=== PATIENT | female | born 1955 | race Caucasian/White ===

== ENCOUNTER 2017-06-13 12:18 | Emergency (ER) | payer BC ==
[~2017-06-13] VITALS: Ht 157.5 cm; Wt 66.7 kg
[2017-06-13 12:37] LABS: URINE BILIRUBIN - DIPSTICK NEGATIVE (NEG); URINE BLOOD 2+ (NEG)
[2017-06-13] MEDS ORDERED: PYRIDIUM100 M2 PO (12:59)
[2017-06-13] MEDS ORDERED: MACROBID100 M3 PO (12:59)
--- NOTE | 2017-06-13 13:00 | Urgent Treatment Center Report ---
History of Present Issue Date/Time Seen by Provider 06/13/17 1245 Visit Reason Pt arrived:Walked Presenting Problem:PT C/O PAIN, BURNING AND FREQUENCY WITH URINATION FOR THE PAST WEEK Location if Accident: Onset of symptoms date/time:/ or onset unknown for:MEDICAL HX UNKNOWN Have you (or family members/close friends) recently traveled outside the [place]? N If Yes, where/when: Have you had exposure to infectious disease within the past month? TB? Other? Specify: Patient state that she has been having pain and burning with urination. States that she feels like she continuously has to go to the bathroom, Having the feeling of urgency and frequency for over a week now. State that she took some over the counter AZO and it helped for about a day then the pain returned and was worse than it was in the begining Source patient ALLERGIES Coded Allergies: Sulfa (Sulfonamide Antibiotics) (Mild, 06/13/17) prednisone (Mild, 06/13/17) History Medical History General CAD? No Angina: No [place]: No Hypertension? No Hyperlipidemia? No CHF? No DVT? No PE? No COPD? No Asthma? No Anemia? No GERD? No Gastric ulcers? No GI Bleed? No Hernia? No Thyroid Problems? No Hypothyroidism? No CVA? No Seizures? No Diabetes? No Renal Insuffiency? No UTI? No Stones? No BPH? No GB Disease: No Nephritic Syndrome? No Asplenia? No Hepatitis? No Sickle Cell Disease? No Arthritis? No Migraines? No Cataracts? No Glaucoma? No MRSA? No HIV? No TB? No Anxiety? No Depression? No Cancer? No More? No Immunization HX DT/Tetanus 1-4 Years Ago Surgical Hx Previous Surgery?N Social History Smoking Hx Smoker: Never Smoker Tobacco: No Review of Systems All Other Systems Reviewed and Negative Genitourinary dysuria, frequency, pain. Physical Exam Vital Signs Vital Signs Date Time Temp Pulse Resp B/P Pulse O2 O2 Flow FiO2 Ox Delivery Rate 06/13 1301 98.2 87 16 132/74 98 06/13 1235 98.2 87 16 132/74 98 General Appearance normal appearance, WD/WN, no apparent distress Respiratory Status Yes: trachea midline, chest symmetrical, non tender chest. No: respiratory distress. 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 No Results/Orders Laboratory Tests 06/13/17 1230: Urine Color DARK YELLOW, Urine Appearance Clear, Urine pH 6.5, Ur Specific [place] 1.015, Urine Protein TRACE H, Urine Ketones NEGATIVE, Urine Blood 2+ H , Urine Nitrate POSITIVE H, Urine Bilirubin NEGATIVE, Urine Urobilinogen 1, Ur Leukocyte Esterase 3+ H, Urine Glucose TRACE H Orders Procedure Date/time Status [facility] URINE DIPSTICK 06/13 1230 Complete Departure Departure Time of Disposition 1256 Disposition DC Home or Self Care(routine) Clinical Impression Primary Impression: UTI (urinary tract infection) Qualifiers: Urinary tract infection type: site unspecified Hematuria presence: with hematuria Qualified Code: N39.0 - Urinary tract infection, site not specified Condition STABLE Patient Instructions DI for Urinary Tract Infection (UTI), Urinary Tract Infection Additional Instructions Drink plenty of fluids FOllow up with family doctor Take medication as prescribed Return if needed Discharge Counseling Counseled pt/family regarding diagnosis, test results, medications/RX, home care, follow up needs Prescriptions Current Visit Scripts NITROFURANTOIN MONOHYD/M-CRYST (Macrobid 100 MG Capsule) 100 MG PO BID #14 CAP Phenazopyridine HCl (Pyridium) 100 MG PO TID #6 TAB at 1221 Drink plenty of fluids FOllow up with family doctor Take medication as prescribed Return if needed Discharge Counseling Counseled pt/family regarding diagnosis, test results, medications/RX, home care, follow up needs Prescriptions Current Visit Scripts NITROFURANTOIN MONOHYD/M-CRYST (Macrobid 100 MG Capsule) 100 MG PO BID #14 CAP Phenazopyridine HCl (Pyridium) 100 MG PO TID #6 TAB
--- NOTE | 2017-06-13 13:00 | Urgent Treatment Center Report ---
History of Present Issue Date/Time Seen by Provider 06/13/17 1245 Visit Reason Pt arrived:Walked Presenting Problem:PT C/O PAIN, BURNING AND FREQUENCY WITH URINATION FOR THE PAST WEEK Location if Accident: Onset of symptoms date/time:/ or onset unknown for:MEDICAL HX UNKNOWN Have you (or family members/close friends) recently traveled outside the [place]? N If Yes, where/when: Have you had exposure to infectious disease within the past month? TB? Other? Specify: Patient state that she has been having pain and burning with urination. States that she feels like she continuously has to go to the bathroom, Having the feeling of urgency and frequency for over a week now. State that she took some over the counter AZO and it helped for about a day then the pain returned and was worse than it was in the begining Source patient ALLERGIES Coded Allergies: Sulfa (Sulfonamide Antibiotics) (Mild, 06/13/17) prednisone (Mild, 06/13/17) History Medical History General CAD? No Angina: No [place]: No Hypertension? No Hyperlipidemia? No CHF? No DVT? No PE? No COPD? No Asthma? No Anemia? No GERD? No Gastric ulcers? No GI Bleed? No Hernia? No Thyroid Problems? No Hypothyroidism? No CVA? No Seizures? No Diabetes? No Renal Insuffiency? No UTI? No Stones? No BPH? No GB Disease: No Nephritic Syndrome? No Asplenia? No Hepatitis? No Sickle Cell Disease? No Arthritis? No Migraines? No Cataracts? No Glaucoma? No MRSA? No HIV? No TB? No Anxiety? No Depression? No Cancer? No More? No Immunization HX DT/Tetanus 1-4 Years Ago Surgical Hx Previous Surgery?N Social History Smoking Hx Smoker: Never Smoker Tobacco: No Review of Systems All Other Systems Reviewed and Negative Genitourinary dysuria, frequency, pain. Physical Exam Vital Signs Vital Signs Date Time Temp Pulse Resp B/P Pulse O2 O2 Flow FiO2 Ox Delivery Rate 06/13 1301 98.2 87 16 132/74 98 06/13 1235 98.2 87 16 132/74 98 General Appearance normal appearance, WD/WN, no apparent distress Respiratory Status Yes: trachea midline, chest symmetrical, non tender chest. No: respiratory distress. 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 No Results/Orders Laboratory Tests 06/13/17 1230: Urine Color DARK YELLOW, Urine Appearance Clear, Urine pH 6.5, Ur Specific [place] 1.015, Urine Protein TRACE H, Urine Ketones NEGATIVE, Urine Blood 2+ H , Urine Nitrate POSITIVE H, Urine Bilirubin NEGATIVE, Urine Urobilinogen 1, Ur Leukocyte Esterase 3+ H, Urine Glucose TRACE H Orders Procedure Date/time Status [facility] URINE DIPSTICK 06/13 1230 Complete Departure Departure Time of Disposition 1256 Disposition DC Home or Self Care(routine) Clinical Impression Primary Impression: UTI (urinary tract infection) Qualifiers: Urinary tract infection type: site unspecified Hematuria presence: with hematuria Qualified Code: N39.0 - Urinary tract infection, site not specified Condition STABLE Patient Instructions DI for Urinary Tract Infection (UTI), Urinary Tract Infection Additional Instructions Drink plenty of fluids FOllow up with family doctor Take medication as prescribed Return if needed Discharge Counseling Counseled pt/family regarding diagnosis, test results, medications/RX, home care, follow up needs Prescriptions Current Visit Scripts NITROFURANTOIN MONOHYD/M-CRYST (Macrobid 100 MG Capsule) 100 MG PO BID #14 CAP Phenazopyridine HCl (Pyridium) 100 MG PO TID #6 TAB at 1221 Drink plenty of fluids FOllow up with family doctor Take medication as prescribed Return if needed Discharge Counseling Counseled pt/family regarding diagnosis, test results, medications/RX, home care, follow up needs Prescriptions Current Visit Scripts NITROFURANTOIN MONOHYD/M-CRYST (Macrobid 100 MG Capsule) 100 MG PO BID #14 CAP Phenazopyridine HCl (Pyridium) 100 MG PO TID #6 TAB
[2017-06-13 13:01] VITALS: BP 132/74
== END 2017-06-13 13:04 | disposition home or self-care (01) ==
LOC: UTC 12:18
PROVIDERS: Nurse Practitioner
DX: N39.0 Urinary tract infection, site not specified (principal); Z88.2 Allergy status to sulfonamides

== ENCOUNTER 2017-07-10 16:17 | Emergency (ER) | payer BC ==
[~2017-07-10] VITALS: Ht 157.5 cm; Wt 66.2 kg
[~2017-07-10 16:17] MED LIST: MACROBID100 M3 PO; PYRIDIUM100 M2 PO
[2017-07-10] MEDS ORDERED: GABAPENTIN 600600 MG PO (16:27)
[2017-07-10] MEDS ORDERED: TRAMADOL 50MG T50 M1 PO (16:28)
[2017-07-10] MEDS ORDERED: LAMICTAL 100 M100 MG PO (16:29)
[2017-07-10] MEDS ORDERED: ARIPIPRAZO10 MG/TABL PO (16:30)
[2017-07-10] MEDS ORDERED: MELOXICAM7.5 MG PO (16:31)
[2017-07-10] MEDS ORDERED: CYMBALTA60 MG PO (16:32)
[2017-07-10] MEDS ORDERED: ESTRACE 0.5MG0.5 MG OR (16:32)
[2017-07-10] MEDS ORDERED: LOSARTAN POTASS50 MG PO (16:32)
[2017-07-10 16:33] LABS: URINE BILIRUBIN - DIPSTICK NEGATIVE (NEG); URINE BLOOD MODERATE (NEG)
[2017-07-10] MEDS ORDERED: HYDROCHLOROTHIA25 M1 PO (16:33)
[2017-07-10] MEDS ORDERED: PERCOCET1 TA1 PO (16:33)
[2017-07-10] MEDS ORDERED: D-10001 TAB PO (16:34)
--- OUTSIDE RECORDS SUMMARY | 2017-07-10 17:04 | External Medical Summary Rpt | CCD ---
Author Author , ADITHYA HAJI Address Unknown Phone [email or web address] Purpose Continuity of Care Document - 04-02-2014 through 2016 Results Labs Lab Lab Date Result Refere Interp Status Commen Order Detail nces retati t Range on Urinalysis macro (dipstick) panel in Urine (06-13-2017 12:30) Appeara Clear CLEAR complet nce of 017 ed Urine 12:30 Bilirub NEGATIV NEG complet in 017 E ed [Presen 12:30 ce] in Urine by Test strip Erythro 2+ NEG Abnorma complet cytes 017 l ed [Presen 12:30 ce] in Urine Color DARK YELLOW complet of 017 YELLOW ed Urine 12:30 Ketones NEGATIV NEG complet 017 E ed [Presen 12:30 ce] in Urine by Automat ed test strip Leukocy 3+ NEG Abnorma complet te 017 l ed esteras 12:30 e [Presen ce] in Urine by Automat ed test strip Nitrite POSITIV NEG Abnorma complet 017 E l ed [Presen 12:30 ce] in Urine by Test strip Urobili 1 NEG complet nogen 017 ed [Presen 12:30 ce] in Urine by Test strip
--- OUTSIDE RECORDS SUMMARY | 2017-07-10 17:04 | External Medical Summary Rpt | CCD ---
Demographics Preferred Language Slovak Marital Status Unknown Muslim Affiliation Unknown Race Unknown Ethnic Group Unknown Author Author , ADITHYA HAJI Address Unknown Phone Immunization Unable to retrieve immunization data due to connection failure with Immunization Registry. Please try again later.
--- OUTSIDE RECORDS SUMMARY | 2017-07-10 17:04 | External Medical Summary Rpt | CCD ---
Author Author , ADITHYA HAJI Address Unknown Phone [email or web address] Purpose Continuity of Care Document - 04-02-2014 [...]
--- OUTSIDE RECORDS SUMMARY | 2017-07-10 17:04 | External Medical Summary Rpt ---
Author Author ADITHYA Esquivel, ADITHYA [employer] Organization [employer] Address Unknown Phone Unavailable Payers Section Payer Plan Name Group ID Member ID Coverage Coverage Start End Date Date ANTHEM "" [id number] Jul 19 No BCBS [id number] 2012 informati on in source data Results Urinalysis macro (dipstick) panel in Urine Observa Value Referen Units Interpr Notes Date tion ce etation Range Appeara Clear CLEAR No No No Sep 26 nce of informa informa informa 2017 Urine tion in tion in tion in 12:30 source source source PM data data data Bilirub NEGATIV NEG No No No Sep 26 in E informa informa informa 2016 [Presen tion in tion in tion in 12:30 ce] in source source source PM Urine data data data by Test strip Erythro 2+ NEG No Abnorma No Sep 26 cytes informa l informa 2016 [Presen tion in tion in 12:30 ce] in source source PM Urine data data Color DARK YELLOW No No No Sep 26 of YELLOW informa informa informa 2017 Urine tion in tion in tion in 12:30 source source source PM data data data Glucose NEG No High No Sep 26 [Mass/vol informati informati 2017 ume] in on in on in 12:30 PM Urine by source source Test data data strip Ketones NEGATIV NEG mg/dL No No Sep 26 E informa informa 2017 [Presen tion in tion in 12:30 ce] in source source PM Urine data data by Automat ed test strip pH of 5.0 - 8.5 No Normal No Sep 26 Urine informati informati 2017 on in on in 12:30 PM source source data data Protein NEG mg/dL High No Sep 26 [Mass/vol informati 2017 ume] in on in 12:30 PM Urine by source Automated data test strip Specific 1.005 - No Normal No Sep 26 gravity 1.030 informati informati 2016 of Urine on in on in 12:30 PM source source data data Leukocy 3+ NEG No Abnorma No Jun 13 te informa l informa 2016 esteras tion in tion in 12:30 e source source PM [Presen data data ce] in Urine by Automat ed test strip Nitrite POSITIV NEG No Abnorma No Jun 13 E informa l informa 2016 [Presen tion in tion in 12:30 ce] in source source PM Urine data data by Test strip Urobili 1 NEG E.U./dL No No Jun 13 nogen informa informa 2016 [Presen tion in tion in 12:30 ce] in source source PM Urine data data by Test strip MRI-SPINE CERVICAL W/O CONTRAS Observa Value Referen Units Interpr Notes Date tion ce etation Range TEXT Name: No No No No Apr 02 DIAGNOS JONES informa informa informa informa 2013 IS ,HUSSAIN tion in tion in tion in tion in 12:03 BATTERY INE source source source source PM data data data data Phys: KAILEE MALDONADO II, MD : [id number] Age: 58 Sex: F Acct: [id number] Loc: M RAD Exam Date: 014 Status: REG REF Radiolo gy No: Unit No: [id number] XAM# TYPE/EX AM RESULT0 [id number] MRI/MRI -SPINE CERVICA L W/O CONT Examina tion: MRI of the cervica l spine without contras t. Clinica l Informa tion: Neck pain. Finding s: The sagitta l T1 and T2-weig hted images show prior C5-C6 discect dacia with anterio r fusion. There is no suspici ous bone edema. The remaini ng discs are unremar kable. Spinal cord shows no intra-a xial lesions . Axial images are unremar kable without disc herniat ion, spinal stenosi s or foramin al stenosi s. Impress ion: 1. 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 There is no evidenc e of acute or chronic complic ation. 2. Otherwi se unremar kable exam. REPORT SIGNED IN OTHER VENDOR SYSTEM 014 Reporte d By: DEANGELO TUCKER CC: KAILEE MALDONADO II, MD; Herbert MONTANA MD Technol ogist: ENRICO WOODS Transcr ibed Date/Ti me: 014 (9401) Transcr iptioni st: n/a Printed Date/Ti me: 014 (1201) PAGE 1 Signed Report
--- OUTSIDE RECORDS SUMMARY | 2017-07-10 17:04 | External Medical Summary Rpt ---
Author Author ADITHYA Esquivel, ADITHYA Coty Organization [employer] Address Unknown Phone Unavailable Payers Section Payer Plan Name Group ID Member ID Coverage Coverage Start End Date Date ANTHEM "" [id number] Jul 19 No BCBS [id number] 2012 informati [...] : [id number] Age: 58 Sex: F Acct: [id number] Loc: M RAD Exam Date: 014 Status: REG REF Radiolo gy No: Unit No: [id number] XAM# TYPE/EX AM RESULT0 [id number] MRI/MRI -SPINE CERVICA L W/O CONT [...] ENRICO WOODS Transcr ibed Date/Ti me: 014 (6541) Transcr iptioni st: n/a Printed Date/Ti me: 014 (1201) PAGE 1 Signed Report
--- OUTSIDE RECORDS SUMMARY | 2017-07-10 17:04 | External Medical Summary Rpt | CCD ---
Demographics Preferred Language Uzbek Marital Status Unknown Jainism Affiliation Unknown Race Unknown Ethnic Group Unknown Author Author , ADITHYA HAJI Address Unknown Phone Immunization Unable to retrieve immunization data due to connection failure with Immunization Registry. Please try again later.
[2017-07-10] MEDS ORDERED: TESSALON PERLE100 M1 PO (17:34)
--- NOTE | 2017-07-10 17:34 | Urgent Treatment Center Report ---
History of Present Issue Date/Time Seen by Provider 07/10/17 8757 Visit Reason Pt arrived:Walked Presenting Problem:FEELS LIKE A UTI, COUGH X 3 DAYS DX A FEW WEEKS AGO WITH UTI Location if Accident: Onset of symptoms date/time:/ or onset unknown for:MEDICAL HX UNKNOWN Have you (or family members/close friends) recently traveled outside the [place]? N If Yes, where/when: Have you had exposure to infectious disease within the past month? TB? Other? Specify: Patient state that she was seen and treated 2-3 weeks ago for UTI state that she took macrobid but she does not think that it helped to clear up the infection State that now she is having the same symptoms again and thinks she may have a UTI again and has cough and feeling like her nose is stopped up for 3 day ALLERGIES Coded Allergies: Sulfa (Sulfonamide Antibiotics) (Mild, 06/13/17) prednisone (Mild, 06/13/17) Home Medications Reported Medications Gabapentin (Gabapentin 600MG) 600 MG PO Q8 TRAMADOL HCL (Tramadol) 50 MG PO TID Lamotrigine (Lamictal 100Mg) 100 MG PO BID Aripiprazole 10 MG PO DAILY Meloxicam (Meloxicam 7.5MG) 7.5 MG PO BID Estradiol (Estrace 0.5MG Tablet) 0.5 MG OR DAILY DULOXETINE HCL (Cymbalta 60MG) 60 MG PO DAILY Losartan Potassium (Losartan 50MG) 50 MG PO DAILY OXYCODONE HCL/ACETAMINOPHEN (Percocet 10-325 MG Tablet) 1 TAB PO PRN PRN PAIN HYDROCHLOROTHIAZIDE (Hydrochlorothiazide) 25 MG PO DAILY CHOLECALCIFEROL (VITAMIN D3) (Vitamin D) 1 TAB PO DAILY History Medical History General CAD? No Angina: No [place]: No Hypertension? No Hyperlipidemia? No CHF? No DVT? No PE? No COPD? No Asthma? No Anemia? No GERD? No Gastric ulcers? No GI Bleed? No Hernia? No Thyroid Problems? No Hypothyroidism? No CVA? No Seizures? No Diabetes? No Renal Insuffiency? No UTI? No Stones? No BPH? No GB Disease: No Nephritic Syndrome? No Asplenia? No Hepatitis? No Sickle Cell Disease? No Arthritis? No Migraines? No Cataracts? No Glaucoma? No MRSA? No HIV? No TB? No Anxiety? No Depression? No Cancer? No More? No Immunization HX DT/Tetanus 1-4 Years Ago Surgical Hx Previous Surgery?N Social History Smoking Hx Smoker: Never Smoker Tobacco: No Alcohol Alcohol: No Review of Systems All Other Systems Reviewed and Negative Constitutional denies chills, denies fever ENT nose discharge, nose congestion. Genitourinary dysuria, frequency, pain. denies: hematuria. Physical Exam Vital Signs Vital Signs Date Time Temp Pulse Resp B/P Pulse O2 O2 Flow FiO2 Ox Delivery Rate 07/10 173 98.8 92 20 150/66 96 07/10 1626 98.8 92 20 150/66 96 General Appearance normal appearance, WD/WN, no apparent distress Ear, Nose, Throat sinus pain/drainage, nasal congestion, Clear nasal drainage Respiratory Status Yes: trachea midline, chest symmetrical, non tender chest. No: respiratory distress. Cardiovascular normal exam, regular rate/rhythm, no peripheral edema Gastrointestinal normal bowel sounds, normal exam, non tender Neurologic alert, normal exam, oriented x 3 Medical Decision Making LABS/Meds/Orders Pt receiving controlled substance in ED? No Results/Orders Laboratory Tests 07/10/17 1632: Urine Color DARK YELLOW, Urine Appearance COUDY, Urine pH 6.5, Ur Specific [place] 1.025, Urine Protein 100, Urine Ketones NEGATIVE, Urine Blood MODERATE, Urine Nitrate NEGATIVE, Urine Bilirubin NEGATIVE, Urine Urobilinogen 1.0, Ur Leukocyte Esterase MODERATE, Urine Glucose NEGATIVE Orders Procedure Date/time Status [facility] URINE DIPSTICK 07/10 1632 Complete Progress [facility] Progress Notes 1 Date 07/10/17 Comment Paged pharmacy to discuss treatment options due to medication awaiting call back [facility] Progress Notes 2 Comment Spoke with [facility] pharmacist from pharmacy due to listed potential reaction between Cipro and Duloxetine. Discussed treatment and agree Levaquin 500 daily for 7 days Departure Departure Time of Disposition 1729 Disposition DC Home or Self Care(routine) Clinical Impression Primary Impression: UTI (urinary tract infection) Qualifiers: Urinary tract infection type: site unspecified Hematuria presence: with hematuria Qualified Code: N39.0 - Urinary tract infection, site not specified Condition STABLE Patient Instructions DI for Urinary Tract Infection (UTI), Urinary Tract Infection Additional Instructions *Increase fluids. Water not Soda or Tea *Start antibiotic immediately and be sure to take as ordered for the FULL length of time although you should start to see improvement over the next 48 hours *Pyridium as needed Remember this medication will turn your urine [place]. This is normal but it will stain what ever it gets on *You should not use Pyridium for more than 48 hours. If so , follow up with your primary physician to review urine culture and ensure that antibiotic is adequate for infection *Be SURE to follow up anytime for new or worsening symptoms. AND in 48 hours for urine culture results AND in 10-14 days to repeat UA to ensure infection is resolved and blood no longer present *Be sure to let your PCP know that we sent urine cultures from the [facility] so they can follow up to ensure that you area the on the correct antibiotic Discharge Counseling Counseled pt/family regarding diagnosis, test results, medications/RX, home care, follow up needs Prescriptions Current Visit Scripts Benzonatate (Tessalon Perle) 100 MG PO TID #15 SGL Levofloxacin (Levaquin 500MG) 500 MG PO DAILY #7 TAB at 4181
[2017-07-10 17:37] VITALS: BP 150/66
[2017-07-10] MEDS ORDERED: LEVAQUIN500 MG PO (18:01)
== END 2017-07-10 18:03 | disposition home or self-care (01) ==
LOC: UTC 16:17
PROVIDERS: Nurse Practitioner
DX: N39.0 Urinary tract infection, site not specified (principal); Z88.2 Allergy status to sulfonamides